=== PATIENT | female | born 1990 | race Caucasian/White ===

== ENCOUNTER 2017-05-28 20:28 | Emergency (ER) | payer SELFPAY ==
[~2017-05-28] VITALS: Ht 162.6 cm; Wt 138.0 kg
[2017-05-28 22:04] VITALS: BP 170/91
== END 2017-05-29 01:17 | disposition home or self-care (01) ==
LOC: ER 20:28
DX: J11.1 Influenza due to unidentified influenza virus with other respiratory manifestations (principal); I10 Essential (primary) hypertension
CPT/HCPCS: 81025; 87804; 99284